=== PATIENT | female | born 1995 | race Caucasian/White ===

== ENCOUNTER 2022-11-20 21:23 | Emergency (ER) | payer OTHER, SELFPAY ==
[2022-11-20 21:25] VITALS: BP 126/82; PULSE 91; RESP 18; TEMP 37.3; O2SAT 100; BMI 68.7
--- NOTE | 2022-11-20 21:39 | ED.FEMALEGU1 ---
HPI - Female Genitourinary General Chief complaint: Urogenital-Female Stated complaint: DIFFICULTY URINATING Time Seen by Provider: 11/20/22 21:27 Source: patient and family Mode of arrival: walk-in Limitations: no limitations History of Present Illness HPI Narrative: 26-year-old female presents with dysuria and bilateral lower back pain with nausea and a couple episodes of vomiting. She states that she went to the family nurse practitioner yesterday and was diagnosed with a UTI and was started on cefdinir 600 mg once a day and Pyridium. She states that she developed nausea today and she called a nurse friend that worked here who directed her to the ER. She also complains of bilateral TMJ pain and she admits to clenching her teeth when she is stressed out. Denies fever, abd or back pain Related Data Previous Rx's Medication Instructions Recorded ondansetron 4 mg disintegrating 4 mg PO Q8H 3 days #9 tabs 11/20/22 tablet tizanidine 4 mg tablet (Zanaflex) 4 mg PO TID PRN muscle spasticity 11/20/22 5 days #15 tabs Allergies Allergy/AdvReac Type Severity Reaction Status Date / Time No Known Drug Allergies Allergy Verified 11/20/22 21:30 Review of Systems ROS Status of ROS 10 or more systems reviewed and unremarkable except as noted in history and below Exam Narrative Exam Narrative: General: A&Ox3, no distress, talking in full an complete sentences skin: warm, dry, intact head: normocephalic, atraumatic eyes: EOMI nose: nares patent neck: supple, trachea midline respiratory: non-labored extremities: FROM x 4, strength +5/5 abd: soft, NT spine: NT, normal ROM, no step offs neuro: A&Ox3 psych: appropriate mood and affect, cooperative Constitutional Vital Signs, click to edit/add: Last Vital Signs Temp 99.2 F 11/20/22 21:25 Pulse 91 H 11/20/22 21:25 Resp 18 11/20/22 21:25 BP 126/82 H 11/20/22 21:25 Pulse Ox 100 11/20/22 21:25 O2 Del Method Room Air 11/20/22 21:25 Course Vital Signs Vital signs: Vital Signs Temperature 99.2 F 11/20/22 21:25 Pulse Rate 91 H 11/20/22 21:25 Respiratory Rate 18 11/20/22 21:25 Blood Pressure 126/82 H 11/20/22 21:25 Pulse Oximetry 100 11/20/22 21:25 Oxygen Delivery Method Room Air 11/20/22 21:25 Temperature 99.2 F 11/20/22 21:25 Pulse Rate 91 H 11/20/22 21:25 Respiratory Rate 18 11/20/22 21:25 Blood Pressure 126/82 H 11/20/22 21:25 Pulse Oximetry 100 11/20/22 21:25 Oxygen Delivery Method Room Air 11/20/22 21:25 MDM - Female Genitourinary MDM Narrative Medical decision making narrative: Urine unable to be read due to Pyridium. No signs of pyelonephritis that she is afebrile, not tachycardic and nontoxic-appearing and likely needs to give the antibiotic more time as she is only taken 2 doses. She is instructed to take this 300 mg twice a day instead of 600 mg once a day and follow-up with family doctor. Urine culture pending. She is given a prescription for Zanaflex for the TMJ and Zofran for the nausea. F/u with PCP. afebrile, not tachycardic, not hypoxic, non toxic appearing and ambulating at baseline and hemodynamically stable to be d/c. answered all questions. educated on SE of meds. pt in agreement with tx. educated when to return to ER. Lab Data Attestation: I reviewed the patient's lab results. Labs: Lab Results 11/20/22 Range/Units 21:40 Urine Color Dk. orange (YELLOW) Urine Clarity Clear (CLEAR) Urine pH N/a (5.0-9.0) Ur Specific [place] 1.020 (1.005-1.025) Urine Protein N/a (NEG/TRACE) mg/dL Urine Glucose (UA) N/a (NEGATIVE) mg/dL Urine Ketones N/a (NEGATIVE) mg/dL Urine Occult Blood N/a (NEGATIVE) Urine Nitrite N/a (NEGATIVE) Urine Bilirubin N/a (NEGATIVE) Urine Urobilinogen N/a (0.2-1.0) EU/dL Ur Leukocyte Esterase N/a (NEGATIVE) Urine RBC >100 A (0-2) #/HPF Urine WBC 10-20 A (NONE SEEN) #/HPF Ur Squamous Epith Cells Few A (NONE/RARE) #/LPF Urine Crystals None seen (None Seen) #/HPF Urine Bacteria Small A (NONE SEEN) #/HPF Urine Casts None seen (NONE SEEN) #/LPF Urine Mucus Trace A (NONE SEEN) Ur Culture Indicated? Already ordered Discharge Plan Discharge Chief Complaint: Urogenital-Female Clinical Impression: TMJ arthralgia Qualifiers: Laterality: bilateral Qualified Code(s): M26.623 - Arthralgia of bilateral temporomandibular joint Nausea & vomiting Qualifiers: Vomiting type: unspecified Qualified Code(s): R11.2 - Nausea with vomiting, unspecified Urinary tract infection Qualifiers: Urinary tract infection type: acute cystitis Hematuria presence: without hematuria Qualified Code(s): N30.00 - Acute cystitis without hematuria Patient Disposition: Home, Self-Care Time of Disposition Decision: 21:56 Condition: Good Mode of Transportation: Private Vehicle Prescriptions / Home Meds: New tizanidine [Zanaflex] 4 mg tablet 4 mg PO TID PRN (Reason: muscle spasticity) 5 Days Qty: 15 0RF ondansetron 4 mg tablet,disintegrating 4 mg PO Q8H 3 Days Qty: 9 0RF Instructions: Temporomandibular Disorder (ED), Acute Nausea and Vomiting (ED) Additional Instructions: take cefdinir 300 mg twice a day Stand Alone Forms: Portal Instructions Referrals: Henry Yuan MD [Primary Care Provider] - 1 week Discharge Date/Time: 11/20/22 22:04
[2022-11-20 21:49] LABS: Clarity Urine CLEAR (CLEAR); Color Urine DK. ORANGE (YELLOW)
[2022-11-20 21:55] LABS: Bacteria Urine SMALL #/HPF (NONE SEEN); Mucus Urine TRACE (NONE SEEN); RBC Urine >100 #/HPF (0-2); Squamous Epithelial Cell Urine FEW #/LPF (NONE/RARE)
[2022-11-20 21:56] LABS: Crystals Seen? None Seen #/HPF (None Seen)
[2022-11-20] MEDS: ONDANSETRON 4 MG RAPDIS TABLET SL (21:57)
[2022-11-20 21:58] LABS: Cast Seen? NONE SEEN #/LPF (NONE SEEN); Urine Culture Indicated ALREADY ORDERED
[2022-11-20] MEDS: TIZANIDINE HCL 4 MG TABLET PO (21:58)
== END 2022-11-20 22:04 | disposition home or self-care (01) ==
PROVIDERS: Physician Assistant; Emergency Provider Internal Medicine; PCP Family Medicine
DX: N30.00 Acute cystitis without hematuria (principal); R11.2 Nausea with vomiting, unspecified; M26.623 Arthralgia of bilateral temporomandibular joint
CPT/HCPCS: 81001; 87086; 99283

== ENCOUNTER 2022-11-22 18:44 | Emergency (ER) | payer OTHER, SELFPAY ==
[2022-11-22 18:49] VITALS: BP 130/87; PULSE 94; RESP 20; TEMP 37; O2SAT 97; BMI 68.7
--- NOTE | 2022-11-22 19:50 | PC.NURSE ---
Eyes slightly jaundice on Pyridium
--- NOTE | 2022-11-22 20:11 | ED.FEMALEGU1 ---
HPI - Female Genitourinary General Chief complaint: Urogenital-Female Stated complaint: JAUNDICED EYES, LOWER BACK PAIN Time Seen by Provider: 11/22/22 20:09 Source: patient Mode of arrival: walk-in Limitations: no limitations History of Present Illness HPI Narrative: patient being treated for UTI. Is on Cefdinir and not improving . also has flank pain. No fever. Noticed her eyes were yellow today. MD elicited complaint: Reports dysuria Related Data Home Medications Medication Instructions Recorded Confirmed aripiprazole 5 mg tablet 5 mg PO .bed time 11/22/22 11/22/22 lamotrigine 100 mg tablet 100 mg PO DAILY 11/22/22 11/22/22 sertraline 25 mg tablet 25 mg PO DAILY 11/22/22 11/22/22 Previous Rx's Medication Instructions Recorded ondansetron 4 mg disintegrating 4 mg PO Q8H 3 days #9 tabs 11/20/22 tablet tizanidine 4 mg tablet (Zanaflex) 4 mg PO TID PRN muscle spasticity 11/20/22 5 days #15 tabs Allergies Allergy/AdvReac Type Severity Reaction Status Date / Time No Known Drug Allergies Allergy Verified 11/20/22 21:30 Review of Systems ROS Status of ROS 10 or more systems reviewed and unremarkable except as noted in history and below Exam Constitutional Vital Signs, click to edit/add: Last Vital Signs Temp 98.6 F 11/22/22 18:49 Pulse 94 H 11/22/22 18:49 Resp 20 11/22/22 18:49 BP 130/87 H 11/22/22 18:49 Pulse Ox 97 11/22/22 18:49 Common normals: no apparent distress, oriented x3 and alert HENMT Common normals: normocephalic and head/scalp atraumatic Eye Other: conjunctiva icteric Respiratory Common normals: normal respiratory effort, no retractions, no use of accessory muscles and clear to auscultation bilaterally Cardio Common normals: regular rate, regular rhythm, S1 normal heart sound and S2 normal heart sound GI Common normals: Normal to inspection, nondistended, normoactive bowel sounds present, soft to palpation and non-tender Extremity Common normals: normal to inspection, full ROM and normal capillary refill Neuro Common normals: CN's II-XII intact bilaterally, moves all extremities, no focal motor deficits and no sensory deficits noted Psych Appearance: grossly normal Course Vital Signs Vital signs: Vital Signs Temperature 98.6 F 11/22/22 18:49 Pulse Rate 94 H 11/22/22 18:49 Respiratory Rate 20 11/22/22 18:49 Blood Pressure 130/87 H 11/22/22 18:49 Pulse Oximetry 97 11/22/22 18:49 Temperature 98.6 F 11/22/22 18:49 Pulse Rate 94 H 11/22/22 18:49 Respiratory Rate 20 11/22/22 18:49 Blood Pressure 130/87 H 11/22/22 18:49 Pulse Oximetry 97 11/22/22 18:49 MDM - Female Genitourinary MDM Narrative Medical decision making narrative: patient presents complaining of continued urinary symptoms. UA not performed because she is on pyridium . Urine cx ordered. she complained of flank pain. CT without evidence of kidney stone. No bile duct obstruction. patient found to have elevated alk Phos and T. bili of 4. Mild elevation of AST and ALT. CT also suggest pneumonia but patient does not have respiratory symptoms. She does take mental health medications that may be cause of elevated LFTs including Abilify and Lamictal. Advised to hold Lamictal for now and followup with her doctor early next week to have labs rechecked. Will treat her urinary symptoms with Levaquin Discharge Plan Discharge Chief Complaint: Urogenital-Female Clinical Impression: Urinary tract infection, Hyperbilirubinemia Patient Disposition: Home, Self-Care Prescriptions / Home Meds: No Action aripiprazole 5 mg tablet 5 mg PO .bed time lamotrigine 100 mg tablet 100 mg PO DAILY sertraline 25 mg tablet 25 mg PO DAILY tizanidine [Zanaflex] 4 mg tablet 4 mg PO TID PRN (Reason: muscle spasticity) 5 Days Qty: 15 0RF ondansetron 4 mg tablet,disintegrating 4 mg PO Q8H 3 Days Qty: 9 0RF Instructions: Urinary Tract Infection in Women (ED), Jaundice (ED) Additional Instructions: hold lamictal for now. follow up with your doctor friday to have your liver lab test rechecked Stand Alone Forms: Portal Instructions Referrals: Henry Yuan MD [Primary Care Provider] - 1 week
--- NOTE | 2022-11-22 20:12 | CT_ITS ---
[address] [address] Patient Name: MAXX MURDOCK MRN: [id number] date: 1995 Sex: F Assigned Patient Location: ER Current Patient Location: Accession/Order Number: [id number] Exam Date: 11/22/2022 21:30 Report Date: 11/22/2022 22:21 At the request of: MAXX ANGUIANO Procedure: CT abdomen pelvis wo con EXAMINATION: CT abdomen pelvis wo con HISTORY: flank pain ; right flank pain; recent urinary tract infection COMPARISON: No relevant comparison available. TECHNIQUE: Axial, Coronal, and Sagittal images were obtained without and/or with IV contrast as indicated by examination type. Dose reduction techniques were achieved by using automated exposure control and/or adjustment of mA and/or kV according to patient size and/or use of iterative reconstruction technique. FINDINGS: LUNG BASES: Irregular dense patchy opacity within posterior lateral right middle lobe suggestive of pneumonia. LIVER: No enlargement, atrophy, suspicious density, or significant focal lesion. BILIARY: No dilatation or calcification. PANCREAS: No lesion, fluid collection, or abnormal duct dilatation. SPLEEN: No enlargement or focal lesion. ADRENALS: 3.2 cm left adrenal mass with areas of fat density favoring a benign adenoma. KIDNEYS: No mass, obstruction, or calcification. BOWEL/MESENTERY: No visible mass, obstruction, or bowel wall thickening. AORTA/VASCULAR: No aneurysm or dissection. RETROPERITONEUM: No mass or adenopathy. LYMPH NODES: No adenopathy. URINARY BLADDER: No visible focal wall thickening, lesion, or calculus. PELVIC ORGANS: No visible mass. Pelvic organs appropriate for patient age. ABDOMINAL WALL: No mass or hernia. BONES: No bony lesion or fracture. OTHER: Negative. CT/CT abdomen pelvis wo con IMPRESSION: 1. Examination slightly limited by patient body habitus. 2.Moderate size area of pneumonia versus dense atelectasis within right middle lobe. 3.No urinary tract calculi or obstructive uropathy. No appreciable bladder wall thickening or inflammatory changes. 4.Left adrenal mass; nonspecific but favoring a benign adenoma. 5.No acute findings to account for patient's symptoms. Electronically authenticated by: RICK OWENS Date: 11/22/2022 22:21
[2022-11-22 20:57] LABS: Anion Gap 12.1; BUN Creatinine Ratio 9.3; Calcium 9.2 mg/dL (8.5-10.1); Carbon Dioxide 27.5 mmol/L (21.0-32.0); Chloride 99 mmol/L (98-107); Estimated GFR (African America >60 (>=60); Estimated GFR (Non-African Ame >60 (>=60); Glucose 98 mg/dL (74-106); Potassium 3.6 mmol/L (3.5-5.1); Sodium 135 mmol/L (136-145)
[2022-11-22 21:41] LABS: Clarity Urine CLEAR (CLEAR); Color Urine DK. ORANGE (YELLOW); Specific Gravity Urine 1.015 (1.005-1.025)
[2022-11-22 21:43] LABS: Urine Microscopic Indicated YES
[2022-11-22 21:47] LABS: Bacteria Urine SMALL #/HPF (NONE SEEN); Cast Seen? NONE SEEN #/LPF (NONE SEEN); Crystals Seen? None Seen #/HPF (None Seen); Mucus Urine NONE SEEN (NONE SEEN); RBC Urine 75-100 #/HPF (0-2); Squamous Epithelial Cell Urine MODERATE #/LPF (NONE/RARE)
[2022-11-22 21:48] LABS: Urine Culture Indicated YES
[2022-11-22 22:32] VITALS: BP 116/68; PULSE 84; RESP 16; O2SAT 94
[2022-11-22 22:42] LABS: Basophils Absolute Auto 0.1 10^3/uL (0.0-0.1); Basophils Percent Auto 0.5 % (0.2-2.0); Eosinophils Absolute Auto 0.9 10^3/uL (0.0-0.7); Eosinophils Percent Auto 7.3 % (0.9-7.0); Hematocrit 39.7 % (36.0-48.0); Hemoglobin 12.5 g/dL (12.0-16.0); Immature Granulocytes Abs Auto 0.15 10^3/uL (0.00-0.03); Immature Granulocytes Pct Auto 1.2 % (0.0-0.5); Lymphocytes Absolute Auto 1.2 10^3/uL (1.2-3.8); Mean Corpuscular HGB Conc 31.5 g/dL (29.9-35.2); Mean Corpuscular Hemoglobin 26.5 pg (26.7-34.0); Mean Corpuscular Volume 84.3 fL (81.0-99.0); Mean Platelet Volume 10.6 fL (9.5-13.5); Monocytes Absolute Auto 0.9 10^3/uL (0.3-0.8); Monocytes Percent Auto 6.6 % (1.7-12.0); Neutrophils Absolute Auto 9.7 10^3/uL (1.4-6.5); Neutrophils Percent Auto 75.4 % (43.0-75.0); Platelet Count 424 10^3/uL (150-450); Red Blood Count 4.71 10^6/uL (4.20-5.40); Red Cell Distribution Width 14.3 % (11.0-15.0); White Blood Count 12.8 10^3/uL (4.0-11.0)
[2022-11-22 22:54] LABS: Alanine Aminotransferase 93 U/L (14-59); Albumin Globulin Ratio 0.6; Alkaline Phosphatase 248 U/L (46-116); Aspartate Amino Transferase 58 U/L (15-37); Bilirubin Total 6.1 mg/dL (0.2-1.0); Globulin 4.7 g/dL; Total Protein 7.7 g/dL (6.4-8.2)
[2022-11-23] MEDS: LEVOFLOXACIN 500 MG TABLET PO (00:08)
[2022-11-23 00:12] VITALS: BP 126/80; PULSE 89; RESP 16; O2SAT 98
== END 2022-11-23 00:16 | disposition home or self-care (01) ==
PROVIDERS: Emergency Provider Internal Medicine; PCP Family Medicine
DX: E80.6 Other disorders of bilirubin metabolism (principal); N39.0 Urinary tract infection, site not specified; Z79.899 Other long term (current) drug therapy
CPT/HCPCS: 36415; 74176; 80048; 80076; 81003; 81015; 85025; 87086; 99284

== ENCOUNTER 2022-11-27 11:50 | Outpatient (OUT) | payer OTHER, SELFPAY ==
[2022-11-27 12:42] LABS: Ammonia 11 umol/L (11-32)
[2022-11-27 12:53] LABS: Basophils Absolute Auto 0.1 10^3/uL (0.0-0.1); Basophils Percent Auto 0.6 % (0.2-2.0); Eosinophils Absolute Auto 0.5 10^3/uL (0.0-0.7); Eosinophils Percent Auto 5.5 % (0.9-7.0); Hemoglobin 12.3 g/dL (12.0-16.0); Immature Granulocytes Abs Auto 0.14 10^3/uL (0.00-0.03); Immature Granulocytes Pct Auto 1.5 % (0.0-0.5); Lymphocytes Absolute Auto 1.2 10^3/uL (1.2-3.8); Lymphocytes Percent Auto 12.9 % (20.5-60.0); Mean Corpuscular HGB Conc 30.8 g/dL (29.9-35.2); Mean Corpuscular Volume 84.6 fL (81.0-99.0); Mean Platelet Volume 9.5 fL (9.5-13.5); Monocytes Absolute Auto 0.7 10^3/uL (0.3-0.8); Monocytes Percent Auto 7.7 % (1.7-12.0); Neutrophils Absolute Auto 6.9 10^3/uL (1.4-6.5); Neutrophils Percent Auto 71.8 % (43.0-75.0); Platelet Count 420 10^3/uL (150-450); Red Blood Count 4.73 10^6/uL (4.20-5.40); Red Cell Distribution Width 15.2 % (11.0-15.0); White Blood Count 9.6 10^3/uL (4.0-11.0)
[2022-11-27 13:55] LABS: INR 0.97; Partial Thromboplastin Time 30.6 sec (22.3-36.2); Prothrombin Time 10.3 sec (9.0-11.6)
[2022-11-27 13:57] LABS: Alanine Aminotransferase 108 U/L (14-59); Albumin Globulin Ratio 0.6; Alkaline Phosphatase 255 U/L (46-116); Amylase 26 U/L (25-115); Anion Gap 14.1; Aspartate Amino Transferase 63 U/L (15-37); BUN Creatinine Ratio 16.2; Bilirubin Total 2.6 mg/dL (0.2-1.0); Calcium 9.4 mg/dL (8.5-10.1); Chloride 102 mmol/L (98-107); Chol HDL Ratio 11.5; Cholesterol 254 mg/dL (<=200); Estimated GFR (African America >60 (>=60); Estimated GFR (Non-African Ame >60 (>=60); Free T3 2.52 pg/mL (2.18-3.98); Globulin 4.7 g/dL; Glucose 100 mg/dL (74-106); HDL Cholesterol 22 mg/dL (40-60); Potassium 4.1 mmol/L (3.5-5.1); Sodium 138 mmol/L (136-145); Total Protein 7.7 g/dL (6.4-8.2); Triglycerides 185 mg/dL (<=150)
[2022-11-27 14:10] LABS: Bilirubin Direct 1.9 mg/dL (0.0-0.2)
[2022-11-27 16:19] LABS: Estimated Average Glucose 120 mg/dL; Glycohemoglobin A1C 5.8 % (4.5-6.2)
[2022-11-28 06:09] LABS: HBsAg Screen Negative (Negative); HCV Ab Non Reactive (Non Reactive); Hep A Ab, IgM Negative (Negative); Hep B Core Ab, IgM Negative (Negative)
[2022-11-28 11:28] LABS: Insulin 14.1 uIU/mL (2.6-24.9)
== END 2022-11-27 11:51 | disposition home or self-care (01) ==
LOC: LAB 11:52
PROVIDERS: PCP Family Medicine; Visit Provider Family Medicine
DX: K75.9 Inflammatory liver disease, unspecified (principal); R58 Hemorrhage, not elsewhere classified; R53.83 Other fatigue; R73.09 Other abnormal glucose; D64.9 Anemia, unspecified; E55.9 Vitamin D deficiency, unspecified; Z02.89 Encounter for other administrative examinations
CPT/HCPCS: 36415; 80053; 80061; 80074; 82140; 82150; 82248; 82306; 83036; 83525; 83540; 83690; 84436; 84443; 84481; 85025; 85610; 85730

== ENCOUNTER 2022-12-06 10:39 | Outpatient (OUT) | payer OTHER, SELFPAY ==
--- NOTE | 2022-12-06 10:44 | US_ITS ---
[facility] [place] [id number] Patient Name: MAXX MURDOCK MRN: [id number] date: 1995 Sex: F Assigned Patient Location: US Current Patient Location: US Accession/Order Number: [id number] Exam Date: 12/06/2022 11:24 Report Date: 12/06/2022 12:38 At the request of: NO AWRD Procedure: US right upper quadrant EXAMINATION: US right upper quadrant HISTORY: Hepatitis K75.9 , elevated liver enzymes COMPARISON: CT abdomen pelvis 11/22/2022 TECHNIQUE: Transabdominal evaluation of the right upper quadrant. FINDINGS: LIVER: Slightly prominent but grossly normal echotexture. Color Doppler demonstrates patent hepatic veins. PORTAL VEIN: Duplex Doppler demonstrates normal hepatopetal flow pattern with flow velocity averaging 31 cm/s. GALLBLADDER: No visible gallstones, wall thickening, or pericholecystic free fluid. Negative sonographic Block's sign. BILIARY: No abnormal dilation or stones. Common bile duct diameter is upper limits of normal. PANCREASE: No visible mass, abnormal atrophy, or duct dilation. KIDNEY: No hydronephrosis. No visible mass or stones. Size: 10.2 x 6.3 x 5.6 cm US/US right upper quadrant IMPRESSION: 1. Limited examination due to patient body habitus and overlying bowel gas. 2. No appreciable acute findings. Possible mild hepatomegaly. Consider CT abdomen pelvis with IV and oral contrast for further evaluation if clinically indicated. Electronically authenticated by: RICK OWENS Date: 12/06/2022 12:38
== END 2022-12-06 10:40 | disposition home or self-care (01) ==
LOC: US 10:39
PROVIDERS: PCP Family Medicine; Visit Provider Family Medicine
DX: K75.9 Inflammatory liver disease, unspecified (principal)
CPT/HCPCS: 76705

== ENCOUNTER 2023-12-23 15:34 | Outpatient (OUT) | payer OTHER, SELFPAY ==
[2023-12-23 16:05] LABS: Basophils Absolute Auto 0.1 10^3/uL (0.0-0.1); Basophils Percent Auto 0.7 % (0.2-2.0); Eosinophils Absolute Auto 0.5 10^3/uL (0.0-0.7); Eosinophils Percent Auto 5.5 % (0.9-7.0); Hematocrit 41.6 % (36.0-48.0); Hemoglobin 13.5 g/dL (12.0-16.0); Immature Granulocytes Abs Auto 0.03 10^3/uL (0.00-0.03); Immature Granulocytes Pct Auto 0.3 % (0.0-0.5); Lymphocytes Absolute Auto 2.1 10^3/uL (1.2-3.8); Lymphocytes Percent Auto 23.6 % (20.5-60.0); Mean Corpuscular HGB Conc 32.5 g/dL (29.9-35.2); Mean Corpuscular Hemoglobin 27.7 pg (26.7-34.0); Mean Corpuscular Volume 85.4 fL (81.0-99.0); Mean Platelet Volume 9.3 fL (9.5-13.5); Monocytes Absolute Auto 0.6 10^3/uL (0.3-0.8); Monocytes Percent Auto 6.4 % (1.7-12.0); Neutrophils Absolute Auto 5.6 10^3/uL (1.4-6.5); Neutrophils Percent Auto 63.5 % (43.0-75.0); Platelet Count 311 10^3/uL (150-450); Red Blood Count 4.87 10^6/uL (4.20-5.40); Red Cell Distribution Width 12.9 % (11.0-15.0); White Blood Count 8.8 10^3/uL (4.0-11.0)
[2023-12-23 16:23] LABS: Estimated Average Glucose 117 mg/dL; Glycohemoglobin A1C 5.7 % (4.5-6.2)
[2023-12-23 16:36] LABS: Alanine Aminotransferase 35 U/L (14-59); Albumin Globulin Ratio 0.9; Albumin Level 3.3 g/dL (3.4-5.0); Alkaline Phosphatase 65 U/L (46-116); Anion Gap 9.8; Aspartate Amino Transferase 22 U/L (15-37); BUN Creatinine Ratio 13.3; Bilirubin Total 0.5 mg/dL (0.2-1.0); Carbon Dioxide 28.8 mmol/L (21.0-32.0); Chloride 98 mmol/L (98-107); Chol HDL Ratio 4.2; Cholesterol 190 mg/dL (<=200); Estimated GFR (African America >60 (>=60); Estimated GFR (Non-African Ame >60 (>=60); Free T3 2.57 pg/mL (2.18-3.98); Globulin 3.6 g/dL; Glucose 89 mg/dL (74-106); HDL Cholesterol 45 mg/dL (40-60); Potassium 3.6 mmol/L (3.5-5.1); Sodium 133 mmol/L (136-145); Thyroid Stimulating Hormone 2.968 uIU/mL (0.358-3.740); Total Protein 6.9 g/dL (6.4-8.2); Triglycerides 120 mg/dL (<=150)
[2023-12-25 11:09] LABS: Insulin 21.7 uIU/mL (2.6-24.9)
== END 2023-12-23 15:35 | disposition home or self-care (01) ==
LOC: LAB 15:34
PROVIDERS: PCP Family Medicine; Visit Provider Family Medicine
DX: R06.83 Snoring (principal); R53.83 Other fatigue; E66.9 Obesity, unspecified; M54.50 Low back pain, unspecified; R73.09 Other abnormal glucose; D64.9 Anemia, unspecified
CPT/HCPCS: 36415; 80053; 80061; 83036; 83525; 83540; 84436; 84443; 84481; 85025

== ENCOUNTER 2024-01-20 19:56 | Outpatient (OUT) | payer OTHER, SELFPAY ==
--- OUTSIDE RECORDS SUMMARY | 2024-01-20 20:02 | XMS_ITS | CCD ---
Author Organization [facility] Care Team Providers Care Advanced Research Programs Director Name Role Phone DR MYLES MONSIVAIS Admitting Unavailable LOI, DR BUENO Attending Unavailable SHANI JOHNSON Consulting Unavailable DR NO WARD Primary Care Unavailable DR NO WARD Admitting Unavailable DR NO WARD Primary Care Unavailable DR NO WARD Attending Unavailable Problems Active Problems Problem Classification Problem Date Documented Da te Episodic/Chronic Other upper respiratory infections (1 source) Acute upper respiratory infection, unspecified; Translations: [ACUTE UP RESPIRATORY INFECTION UNS] Onset: 04-03-2022 Episodic Substance-related disorders (1 source) Nicotine dependence, cigarettes, uncomplicated; Translations: [NICOTINE DEPEND CIGARETTES UNCOMP] Onset: 04-03-2022 Chronic Unclassified (3 sources) COUGH, UNSPECIFIED; Translations: [COUGH, UNSPECIFIED] Onset: 04-03-2022 Unclassified (1 source) CONTACT W/AND (SUSP) EXPOS COVID-19; Translations: [CONTACT W/AND (SUSP) EXPOS COVID-19] Onset: 04-03-2022 Past or Other Problems Problem Classification Problem Date Documented Da te Episodic/Chronic Unclassified (1 source) COUGH, UNSPECIFIED; Translations: [COUGH, UNSPECIFIED] Onset: 03-31-2022 Results Test Name Value Interpretation Reference Range Facil ity Covid-19 PCR (CVDTBH)on 03-13 SARS-CoV-2 (COVID-19) RNA AARON+probe Ql (Unsp spec) Not detected Normal NOT DETECTED [facility] Comment on above: Result Comment: When diagnostic testing is negative, the possibility of a false negative should be considered in the context of a patient's recent exposures and the presence of clinical signs and symptoms consistent with SARS-CoV-2. This test is not yet approved or cleared by the [place] FDA. When there are no FDA-approved or cleared tests available, and other criteria are met, FDA can make tests available under an emergency access mechanism called an Emergency Use Authorization (EUA). The EUA for this test is supported by the Licensed Nuclear Control Room Operator of Health and Human Service's declaration that circumstances exist to justify the emergency use of in vitro diagnostics for the detection and/or diagnosis of the virus that causes COVID-19. This EUA will remain in effect for the duration of the COVID-19 declaration justifying emergency of IVDs, unless it is terminated or revoked by the FDA (after which the test may no longer be used). Performed By: #### C VDTBH #### [facility] [address] [place] [address] Dr. Jin Michelle GROUP A STREP CULTUREon 03-13 S. pyogenes Ag Ql (Unsp spec) Culture Observations: NEGATIVE FOR GROUP A STREPTOCOCCUS. Normal [facility] Comment on above: Performed By: #### G RASTCX #### [facility] [address] [place] [address] Dr. Jin Michelle INFLUENZA A AND B AGon 03-31 INFLUANEGH SEE BELOW Normal [facility] Comment on above: Result Comment: Nega tive for Flu A protein angiten. Infection due to Flu A cannot be ruled out. Flu A angiten in the sample may be below the detection limit of the test. Performed By: #### I NFLUAB #### [facility] [address] [place] [address] Dr. Jin Michelle INFLUBNEG SEE BELOW Normal [facility] Comment on above: Result Comment: Nega tive for Flu B protein antigen. Infection due to Flu B cannot be ruled out. Flu B antigen in the sample may be below the detection limit of the test. Performed By: #### I NFLUAB #### [facility] [address] [place] [address] Dr. Jin Michelle INFLUENZA A AG Negative Normal NEGATIVE SEE COMMENT [facility] Comment on above: Performed By: #### I NFLUAB #### [facility] [address] [place] [address] Dr. Jin Michelle INFLUENZA B AG Negative Normal NEGATIVE SEE COMMENT [facility] Comment on above: Performed By: #### I NFLUAB #### [facility] [address] [place], [place] [address] Dr. Jin Michelle INTERNAL CONTROLS Within Normal Limits Normal Wi thin Normal Limits [facility] Comment on above: Performed By: #### I NFLUAB #### [facility] [address] [place], [place] [address] Dr. Jin Michelle STREPT SCREENon 03-31-2022 STREP SCREEN A Negative Normal NEGATIVE [facility] Comment on above: Performed By: #### S SCRN #### [facility] [address] [place], [place] [address] Dr. Jin Michelle Encounters Encounter Date Encounter Type Care Provider Facility Start: 03-31-2022 End: 03-31-[address] MYLES MONSIVAIS Facility:[facility] Start: 07-20-[address] NO WARD Facility :[facility] Payers Date Payer Category Payer Unknown [id number] 1995 Unknown [id number] 1957 Self-pay [id number] 1957 Unknown [id number] 1957 Unknown [id number] Summary Purpose Family History No Family History Records Found Advance Directives No Advanced Directives Records Found Additional Source Comments INFORMATION SOURCE (unrecogn ized section and content) DATE CREATED AUTHOR 06/11/2022 [facility] FOR RECORDS PERTAINING TO PATIENTS WHO ARE OR HAVE BEEN ENROLLED IN A CHEMICAL DEPENDENCY/SUBSTANCEABUSE PROGRAM, SOME INFORMATION MAY BE OMITTED. This clinical summary was aggregated from multiple sources. Caution should be exercised in using it in the provision of clinical care. This summary normalizes information from multiple sources, and as a consequence, information in this document may materially change the coding, format and clinical context of patient data. In addition, data may be omitted in some cases. CLINICAL DECISIONS SHOULD BE BASED ON THE PRIMARY CLINICAL RECORDS. [facility] [employer] [facility]. provides no warranty or guarantee of the accuracy or completeness of information in this document.
== END 2024-01-20 19:57 | disposition home or self-care (01) ==
LOC: SLEEP 19:59
PROVIDERS: PCP Family Medicine; Visit Provider Family Medicine
DX: G47.33 Obstructive sleep apnea (adult) (pediatric) (principal)
CPT/HCPCS: 95810

== ENCOUNTER 2024-03-01 19:58 | Outpatient (OUT) | payer OTHER, SELFPAY ==
--- OUTSIDE RECORDS SUMMARY | 2024-03-01 20:01 | XMS_ITS | CCD ---
Author Organization [facility] Care Team Providers Care Medical Device Sales Consultant Name Role Phone DR MYLES MONSIVAIS Admitting [...] spec) Not detected Normal NOT DETECTED [facility] Comment on above: Result Comment: When diagnostic [...] for this test is supported by the [place] of Health and Human Service's declaration that [...] used). Performed By: #### C VDTBH #### [facility] [address] [place] [address] Dr. Jin Michelle GROUP A STREP CULTUREon 03-13 S. pyogenes Ag Ql (Unsp spec) Culture Observations: NEGATIVE FOR GROUP A STREPTOCOCCUS. Normal [facility] Comment on above: Performed By: #### G RASTCX #### [facility] [address] [place] [address] Dr. Jin Michelle INFLUENZA A AND B AGon 03-31 INFLUANEGH SEE BELOW Normal [facility] Comment on above: Result Comment: Nega tive for Flu A protein angiten. Infection due to Flu A cannot be ruled out. Flu A angiten in the sample may be below the detection limit of the test. Performed By: #### I NFLUAB #### [facility] [address] [place] [address] Dr. Jin Michelle INFLUBNEG SEE BELOW Normal [facility] Comment on above: Result Comment: Nega tive for Flu B protein antigen. Infection due to Flu B cannot be ruled out. Flu B antigen in the sample may be below the detection limit of the test. Performed By: #### I NFLUAB #### [facility] [address] [place] [address] Dr. Jin Michelle INFLUENZA A AG Negative Normal NEGATIVE SEE COMMENT [facility] Comment on above: Performed By: #### I NFLUAB #### [facility] [address] [place] [address] Dr. Jin Michelle INFLUENZA B AG Negative Normal NEGATIVE SEE COMMENT [facility] Comment on above: Performed By: #### I NFLUAB #### [facility] [address] [place], [place] [address] Dr. Jin Michelle INTERNAL CONTROLS Within Normal Limits Normal Wi thin Normal Limits [facility] Comment on above: Performed By: #### I NFLUAB #### [facility] [address] [place], [place] [address] Dr. Jin Michelle STREPT SCREENon 03-31-2022 STREP SCREEN A Negative Normal NEGATIVE [facility] Comment on above: Performed By: #### S SCRN #### [facility] [address] [place], [place] [address] Dr. Jin Michelle Encounters Encounter Date Encounter Type Care Provider Facility Start: 03-31-2022 End: 03-31-[address] MYLES MONSIVAIS Facility:[facility] Start: 07-20-[address] NO WARD Facility :[facility] Payers Date Payer Category Payer Unknown [id number] [id number] 1995 Unknown [id number] 1957 Self-pay [id number] 1957 Unknown [id number] 1957 Unknown [id number] Summary Purpose Family History No Family History Records Found Advance Directives No Advanced Directives Records Found Additional Source Comments INFORMATION SOURCE (unrecogn ized section and content) DATE CREATED AUTHOR 06/11/2022 [facility] FOR RECORDS PERTAINING TO PATIENTS WHO [...] BE BASED ON THE PRIMARY CLINICAL RECORDS. [facility] [employer] [facility]. provides no warranty or guarantee of the accuracy or completeness of information in this document.
== END 2024-03-01 19:59 | disposition home or self-care (01) ==
LOC: SLEEP 19:58
PROVIDERS: PCP Family Medicine; Visit Provider Family Medicine
DX: G47.33 Obstructive sleep apnea (adult) (pediatric) (principal)
CPT/HCPCS: 95811